=== PATIENT | female | born 1935 | race Hispanic/Latino ===

== ENCOUNTER 2024-01-26 06:24 | Emergency (ER) | payer MEDICARE, OTHER ==
[~2024-01-26] VITALS: Ht 162.6 cm; Wt 82.6 kg
[~2024-01-26 06:24] MED LIST: Aspirin PO; COZAAR100 MG PO; LOPRESSOR25 MG PO; NORVASC5 MG PO; PRAVASTATIN SOD20 MG PO; SYNTHROID75 MCG PO
[2024-01-26 06:35] VITALS: PULSE 88; RESP 20; TEMP 97.5
[2024-01-26] MEDS: IBUPROFEN 600 MG TAB PO STA (08:01)
[2024-01-26] MEDS ORDERED: CYCLOBENZAPRINE10 MG PO (09:22)
[2024-01-26 09:35] VITALS: BP 170/83; PULSE 82; RESP 17; O2SAT 100
== END 2024-01-26 09:36 | disposition home or self-care (01) ==
LOC: ER 06:53
DX: M54.2 Cervicalgia (principal); S29.012A Strain of muscle and tendon of back wall of thorax, initial encounter; M79.18 Myalgia, other site; E78.5 Hyperlipidemia, unspecified; Z85.3 Personal history of malignant neoplasm of breast; Z85.850 Personal history of malignant neoplasm of thyroid
CPT/HCPCS: 72125; 72128; 99283